=== PATIENT | female | born 1975 | race Caucasian/White ===

== ENCOUNTER → 2018-11-19 08:29 | Outpatient (CLI) | payer OTHER | END | disposition home or self-care (01) | LOC: D.NM 08:29 | PROVIDERS: ATTEND Internal Medicine Gastroenterology | DX: R11.0 Nausea (principal); R10.9 Unspecified abdominal pain ==

== ENCOUNTER → 2019-01-02 07:38 | Outpatient (CLI) | payer OTHER | END | disposition home or self-care (01) | LOC: D.OPS 07:38 | PROVIDERS: ATTEND Surgery | DX: K21.9 Gastro-esophageal reflux disease without esophagitis (principal) ==

== ENCOUNTER 2019-03-17 07:22 | Inpatient (IN) | payer OTHER ==
[2019-03-14 10:18] LABS: HEMATOCRIT 41.4 % (36.0-48.0); HEMOGLOBIN 13.9 g/dL (12-16); MCH 28.1 pg (26.0-34.0); MCHC 33.6 g/dL (31.0-37.0); MCV 83.8 fL (80.0-100.0); RBC 4.94 10x6/uL (4.00-5.40); RDW 14.2 % (11.5-14.5); WBC 12.7 10x3/uL (4.8-10.8)
[2019-03-14 10:28] LABS: CALC OSMOLALITY 279 mosm/kg (275-300); CALCIUM 8.3 mg/dL (8.5-10.1); CARBON DIOXIDE 29.1 mmol/L (21.0-32.0); CHLORIDE - SERUM 107 mmol/L (98-107); CREATININE - SERUM 0.7 mg/dL (0.6-1.3); GLUCOSE 109 mg/dL (74-106); POTASSIUM - SERUM 3.7 mmol/L (3.5-5.1); SODIUM 141 mmol/L (136-145); UREA NITROGEN 6 mg/dL (7-18); eGFR NON AFRICAN AMERICAN > 90 mL/min (90-120)
[~2019-03-17] VITALS: Ht 165.1 cm; Wt 102.3 kg
[~2019-03-17 07:22] MED LIST: COZAAR25 MG PO; CYCLOBENZAPRINE5 MG PO; GABAPENTIN100 MG PO; LEVEMIR IN100 UNITS/ SC; OMEPRAZOLE40 MG PO; PHENERGAN25 M1 PO; PREVACID SOLUTA30 MG PO; PROZAC10 MG PO; TOPAMAX50 MG PO; ZOCOR80 MG PO
[2019-03-17 08:48] VITALS: BP 111/59; BMI 37.5
--- NOTE | 2019-03-17 14:20 | NUR ---
RECEIVED PT VIA BED FROM RECOVERY ACCOMPANIED BY FAMILY. PT IS ALERT AND ORIENTED X4. ABDOMEN IS FLAT WITH NO BOWEL SOUNDS X4 QUADRANTS. SIX LAP SITES NOTED WITH CLEAN DRESSING. IV SITE LOCATED TO THE LT ARM INFUSING NS AT 50 ML/HR. BED IN THE LOWEST POSITION AND CALL LIGHT WITH IN REACH. CONTINUE WITH PLAN OF CARE.
[2019-03-17 14:29] VITALS: BP 124/76
[2019-03-17 14:35] VITALS: BP 124/76; Ht 165.1 cm; Wt 102.3 kg
--- NOTE | 2019-03-17 20:00 | NUR ---
ASSESSMENT PER FLOWSHEET. IV PATENT LEFT FOREARM OF NS AT 50CC'S/HR. LAP SITES TO ABDOMEN X6 C/D/I. INSTRUCTED PATIENT AND HER SPOUSE THE NEED TO WALK IN THE HALLS. PATIENT UP AD GABRIELLA TO BR VOIDS WELL.
--- NOTE | 2019-03-17 20:45 | NUR ---
UP IN HALLWAYS WITH SPOUSE AMBULATED 3 LABS AROUND NURSES' STATION. TOLERATED WELL. BACK TO ROOM IN BED SR UP X2 CALL LIGHT WITHIN REACH.
--- NOTE | 2019-03-17 21:30 | NUR ---
MEDS GIVEN PER MAR.
--- NOTE | 2019-03-17 23:00 | NUR ---
JERZ=[id number]. NO INSULIN AVAILABLE IN [place] HAVE ALREADY NOTIFIED PHARMACY THE NEED FOR REGULAR INSULIN. TECH WILL BRING.
--- NOTE | 2019-03-17 23:10 | NUR ---
MIZA=[phone]. REGULAR INSULIN 12 UNITS GIVEN SUBC PER S/S TO RT ARM.
--- NOTE | 2019-03-18 02:00 | NUR ---
RESTING QUIETLY VOIDING WELL. SR UP X2 CALL LIGHT WITHIN REACH. SPOUSE AT BEDSIDE.
--- NOTE | 2019-03-18 05:00 | NUR ---
RESTING QUIETLY DENIES NEEDS.
[2019-03-18 06:57] LABS: BASOPHILS 0.2 % (0-2); EOSINOPHILS 1.3 % (0-7); HEMATOCRIT 37.7 % (36.0-48.0); HEMOGLOBIN 12.4 g/dL (12-16); IMMATURE GRANULOCYTES 1.2 % (0-5); LYMPHOCYTES 15.4 % (15-50); MCH 27.5 pg (26.0-34.0); MCHC 32.9 g/dL (31.0-37.0); MCV 83.6 fL (80.0-100.0); MEAN PLATELET VOLUME 9.7 fL (7.4-10.4); MONOCYTES 5.3 % (2-11); NEUTROPHILS 76.6 % (40-80); RBC 4.51 10x6/uL (4.00-5.40); RDW 14.2 % (11.5-14.5); WBC 9.5 10x3/uL (4.8-10.8)
[2019-03-18 07:21] LABS: ALBUMIN 2.7 g/dL (3.4-5.0); ALKALINE PHOSPHATASE 90 U/L (46-116); ALT (SGPT) 66 U/L (10-68); BILIRUBIN - TOTAL 0.36 mg/dL (0.2-1.3); CALC OSMOLALITY 279 mosm/kg (275-300); CALCIUM 7.3 mg/dL (8.5-10.1); CHLORIDE - SERUM 107 mmol/L (98-107); CREATININE - SERUM 0.6 mg/dL (0.6-1.3); GLUCOSE 110 mg/dL (74-106); POTASSIUM - SERUM 3.3 mmol/L (3.5-5.1); SODIUM 141 mmol/L (136-145); UREA NITROGEN 6 mg/dL (7-18); eGFR NON AFRICAN AMERICAN > 90 mL/min (90-120)
[2019-03-18 07:28] LABS: PLATELET COUNT 221 10x3/uL (130-400)
[2019-03-18] MEDS ORDERED: HYDROCODON-ACE1 EAC7 PO (08:19)
[2019-03-18] MEDS ORDERED: ZOFRAN ODT4 MG/UDTAB PO (08:19)
--- NOTE | 2019-03-18 12:20 | NUR ---
IV REMOVED WITH CATH INTACT. NO REDNESS OR EDEMA AT SITE. DISCHARGE INSTRUCTIONS GIVEN TO PATIENT WITH UNDERSTANDING VOICED. PATIENT ASSISTED BY WHEELCHAIR PER VOLUNTEER TO PRIVATE.CAR
--- NOTE | 2019-03-18 13:55 | OP ---
PATIENT NAME: ROSARIO CONTE MEDICAL RECORD: [id number] :76 LOCATION:[id number] ADMISSION DATE:03/17/19 SURGEON: NIRU JAMES MD DATE OF OPERATION: 03/17/2019 BOOK PUBLISHER'S NOTE PREOPERATIVE DIAGNOSES: 1. Hiatal hernia. 2. Intractable gastroesophageal reflux. POSTOPERATIVE DIAGNOSES: 1. Hiatal hernia. 2. Intractable gastroesophageal reflux. PROCEDURE: Laparoscopic hiatal hernia repair with laparoscopic Lila fundoplication. I was the registered medical assistant and I assisted Dr. ZURI Worthington with this operative procedure. My involvement in the operation included, but was not limited to, insertion of 2 of the laparoscopic trocars. Irrigation and aspiration. Manipulation of tissues. Takedowns of some of the short gastrics with the Harmonic scalpel. Some dissection up in the mediastinum, which was combination of blunt dissection as well as dissection with the Harmonic scalpel. Some retrogastric dissection. Instillation of a topical hemostatic agent up into the mediastinum. Assistance with retraction of the esophagus. Assistance with retraction of the suture during laparoscopic suturing. Running the camera. Closure of some of the skin trocar sites. TRANSINT:[id number] Voice Confirmation ID: [id number] DOCUMENT ID: [id number] NIRU JAMES MD at 1355 CC: [id number] DICTATION DATE: 03/17/19 1401 STRING LASTER: 03/17/19 1417 DIS IN 03/18/19 [place] [id number] [place] [id number]
== END 2019-03-18 12:22 | disposition home or self-care (01) | DRG 328 ==
LOC: D.OPS 07:22 → D.PAN 08:00 → D.OPS 09:30 → D.PAN 10:20 → D.MS 14:09 → D.OPS 14:10 → D.MS 14:10
PROVIDERS: Anesthesiology; ADMIT Surgery; ATTEND Surgery
PROC: 0DV44ZZ Restriction of Esophagogastric Junction, Percutaneous Endoscopic Approach (ICD-10-PCS; principal; 2019-03-17 09:30)
PROC: 0BQT4ZZ Repair Diaphragm, Percutaneous Endoscopic Approach (ICD-10-PCS; 2019-03-17 09:30)
DX: K44.9 Diaphragmatic hernia without obstruction or gangrene (principal); K21.9 Gastro-esophageal reflux disease without esophagitis; I10 Essential (primary) hypertension; F17.200 Nicotine dependence, unspecified, uncomplicated; E11.9 Type 2 diabetes mellitus without complications

== ENCOUNTER → 2019-07-28 07:37 | Outpatient (CLI) | payer OTHER ==
[2019-03-17 14:35] VITALS: BMI 37.5
[~2019-07-28 07:37] MED LIST changes: +HYDROCODON-ACE1 EAC7 PO; +ZOFRAN ODT4 MG/UDTAB PO
== END | disposition home or self-care (01) ==
LOC: D.RAD 07-23 09:30
PROVIDERS: ATTEND Surgery
DX: K52.9 Noninfective gastroenteritis and colitis, unspecified (principal)

== ENCOUNTER → 2019-09-01 16:38 | Outpatient (CLI) | payer OTHER ==
[2019-03-17 14:35] VITALS: BMI 37.5
[2019-09-01 17:09] LABS: BASOPHILS 0.2 % (0-2); EOSINOPHILS 2.1 % (0-7); HEMATOCRIT 46.5 % (36.0-48.0); HEMOGLOBIN 15.5 g/dL (12-16); IMMATURE GRANULOCYTES 0.7 % (0-5); LYMPHOCYTES 27.9 % (15-50); MCHC 33.3 g/dL (31.0-37.0); MCV 89.9 fL (80.0-100.0); MEAN PLATELET VOLUME 9.4 fL (7.4-10.4); MONOCYTES 5.9 % (2-11); NEUTROPHILS 63.2 % (40-80); PLATELET COUNT 251 10x3/uL (130-400); RBC 5.17 10x6/uL (4.00-5.40); RDW 14.1 % (11.5-14.5); WBC 11.4 10x3/uL (4.8-10.8)
[2019-09-01 17:54] LABS: ALBUMIN 3.8 g/dL (3.4-5.0); ALKALINE PHOSPHATASE 70 U/L (46-116); ALT (SGPT) 21 U/L (10-68); AMYLASE - SERUM 14 U/L (25-115); BILIRUBIN - TOTAL 0.26 mg/dL (0.2-1.3); CALC OSMOLALITY 279 mosm/kg (275-300); CARBON DIOXIDE 30.2 mmol/L (21.0-32.0); CHLORIDE - SERUM 104 mmol/L (98-107); CREATININE - SERUM 0.6 mg/dL (0.6-1.3); GLUCOSE 116 mg/dL (74-106); LIPASE 105 U/L (73-393); POTASSIUM - SERUM 4.3 mmol/L (3.5-5.1); PROTEIN - SERUM 7.3 g/dL (6.4-8.2); SODIUM 141 mmol/L (136-145); THYROID STIMULATING HORMONE 2.46 uIU/mL (0.36-3.74); UREA NITROGEN 6 mg/dL (7-18); eGFR NON AFRICAN AMERICAN > 90 mL/min (90-120)
[2019-09-01 18:39] LABS: ERYTHROCYTE SEDIMENTATION RATE 10 mm/hr (0-20)
== END | disposition home or self-care (01) ==
LOC: D.LAB
PROVIDERS: ATTEND Internal Medicine Gastroenterology
DX: R19.7 Diarrhea, unspecified (principal)